=== PATIENT | female | born 1985 | race Caucasian/White ===

== ENCOUNTER 2018-05-14 19:18 | Emergency (ER) | payer MEDICAID, OTHER ==
[~2018-05-14] VITALS: Ht 144.8 cm; Wt 62.0 kg
[~2018-05-14 19:18] MED LIST: VITAMINS
[2018-05-14 19:21] VITALS: Ht 144.8 cm; Wt 62.0 kg
--- NOTE | 2018-05-14 20:55 | ERD ---
ER Documentation Chief Complaint Chief Complaint MILD PELVIC PAIN WITH REPORTS OF POSS FEMININE HYGEINE PDT STUCK HPI 32-year-old female presented to ED for possible retained tampon. Patient states that she inserted a tampon last night, but could not find it this morning upon awake. She did wake up and go the bathroom once, but she does not remember whether she change it during the night. Patient reports feeling "inflammation", but denies pelvic pain. Denies dysuria. Denies fever or chills. ROS All systems reviewed and are negative except as per history of present illness. Medications Home Meds Reported Medications Vitamins 08/17/09 Allergies Allergies: Coded Allergies: No Known Drug Allergy (Verified Allergy, Unknown, 08/17/09) PMhx/Soc Medical and Surgical Hx: pt denies Medical Hx, pt denies Surgical Hx History of Surgery: No Hx Neurological Disorder: No Hx Respiratory Disorders: No Hx Cardiac Disorders: No Hx Miscellaneous Medical Probl: No Hx Alcohol Use: No Hx Substance Use: No Hx Tobacco Use: No Smoking Status: Never smoker Physical Exam Vitals Vital Signs Date Temp Pulse Resp B/P (MAP) Pulse Ox O2 O2 Flow FiO2 Time Delivery Rate 05/14/18 97.5 69 16 125/57 99 19:21 (79) Physical Exam General: Well-developed, well-nourished, conscious and coherent, in no distress Skin: Warm and dry without rash, good texture and turgor Head: Normocephalic without evidence of trauma Chest: Normal AP diameter. Good expansion without retractions. Nontender. Lungs are clear to auscultate bilaterally with good tidal volume Heart: Regular rate and rhythm. No murmur, rub, or gallops heard Abdomen: Soft and nontender without masses, guarding, or rebound. Bowel sounds are active. No hepatosplenomegaly : External genitalia without lesions or masses. Vaginal vault with small amount of blood, no foreign body. Cervix normal, no cervical motion tenderness noted. Uterus nontender and normal size. No adnexal tenderness or masses noted. Extremities: Full range of motion. Good strength bilaterally. No erythema, ecchymosis, or edema. Peripheral pulses are intact. Sensation intact Neuro: Alert and oriented 4, GCS 15. Results 24 hrs Laboratory Tests Test 05/14/18 20:44 05/14/18 20:45 Bedside Urine pH (LAB) 6.5 Bedside Urine Protein (LAB) Negative Bedside Urine Glucose (UA) Negative Bedside Urine Ketones (LAB) Negative Bedside Urine Blood 2+ Bedside Urine Nitrite (LAB) Negative Bedside Urine Leukocyte Esterase (L 1+ POC Beta HCG, Qualitative NEGATIVE Procedures/MDM Patient presents to the ED today worried about possible retained tampon in her vagina. Pelvic exam revealed vaginal canal without foreign body. Patient does not have any cervical motion tenderness or pelvic tenderness. I doubt PID. 1+ leukocytes noted on UA, however patient does not have any dysuria. I opted not to treat asymptomatic UTI. Patient appears well, stable for discharge and outpatient management. Medical decision making shared with patient and family. Education provided to patient and family. Patient and family expressed understanding of the plan. Medications on discharge: None. Follow-up: Primary care provider in 2-3 days or return to ED if worse. Disclaimer: Inadvertent spelling and grammatical errors are likely due to EHR/dictation software use and do not reflect on the overall quality of patient care. Also, please note that the electronic time recorded on this note does not necessarily reflect the actual time of the patient encounter. Departure Diagnosis: Primary Impression: Retained foreign body Condition: Stable YUDI BARRIOS NP May 14, 2018 20:55
[2018-05-14 22:53] VITALS: BP 122/73; PULSE 64; RESP 18
== END 2018-05-14 22:54 | disposition home or self-care (01) ==
LOC: FTE 19:18
DX: T19.2XXA Foreign body in vulva and vagina, initial encounter (principal); R10.2 Pelvic and perineal pain; X58.XXXA Exposure to other specified factors, initial encounter; Y92.9 Unspecified place or not applicable
CPT/HCPCS: 81003; 81025; Z7502; 99284